=== PATIENT | female | born 1940 | race Caucasian/White ===

== ENCOUNTER 2016-05-23 13:35 | Outpatient (CLI) | payer OTHER ==
--- NOTE | 2016-05-23 15:01 | DI ---
Examination: Three radiographic images of the thoracic spine. Comparison: None available. Reason for study: Disc degeneration. FINDINGS: Imaging was obtained from the upper thoracic to the upper lumbar spine. The upper thorac ic and lower cervical spine is not well imaged secondary to summation artifact from the patient's sh oulders. No acute fracture or spondylolisthesis. The vertebral bodies and intervertebral body disc space heights are relatively well maintained. There is maintenance of the thoracic kyphosis. There is mild to moderate degenerative disease seen with some loss of intervertebral body disc space heig ht and osteophytic changes. Hardware secondary to anterior cervical discectomy and fusion. Impression: 1. No acute fracture or spondylolisthesis is seen. If clinical concern exists for osseous injury, CT scan may be performed. If clinical concern exists for radiculopathy, MRI may be performed. 2. The upper thoracic and lower cervical spine is not well evaluated.
--- NOTE | 2016-05-23 15:13 | DI ---
EXAM: Lumbar spine five views HISTORY: Disc degeneration. FINDINGS: The bones appear demineralized. There is exaggerated lordosis. Diffuse moderate degener ative disc disease. Severe facet arthropathy, especially at the lower lumbar spine and lumbosacral junction. No significant loss of vertebral body height. No definite spondylolisthesis. No acute f racture. Oblique views reveal no obvious pars interarticularis defect. There is no scoliosis. Sac roiliac joints within normal limits. Vascular calcifications consistent with old granulomatous dise ase. IMPRESSION: Degenerative disc and facet disease. Demineralization. No acute abnormality.
== END 2016-05-23 13:36 | disposition home or self-care (01) ==
LOC: RAD 13:35
PROVIDERS: ATTEND Pain Medicine Interventional Pain Medicine
DX: M51.16 Intervertebral disc disorders with radiculopathy, lumbar region (principal); M51.17 Intervertebral disc disorders with radiculopathy, lumbosacral region; M51.24 Other intervertebral disc displacement, thoracic region; M47.814 Spondylosis without myelopathy or radiculopathy, thoracic region; M47.816 Spondylosis without myelopathy or radiculopathy, lumbar region; M47.817 Spondylosis without myelopathy or radiculopathy, lumbosacral region; M51.34 Other intervertebral disc degeneration, thoracic region; M51.36 Other intervertebral disc degeneration, lumbar region; M51.37 Other intervertebral disc degeneration, lumbosacral region

== ENCOUNTER 2016-12-31 09:09 | Outpatient (CLI) ==
--- NOTE | 2016-12-31 13:44 | MRI ---
EXAM: Lumbar spine MRI without contrast. HISTORY: Lumbar disc disorder with radiation. Lumbar facet arthropathy. COMPARISON: Lumbar spine radiographs 05/23/2016 and thoracic spine radiographs 05/23/2016. TECHNIQUE: Multiplanar, multisequence MR images were acquired lumbar spine without contrast. FINDINGS: Five lumbar-type vertebra are present. There is mild accentuation of the usual lumbar lo rdosis and there is a trace retrolisthesis of L2 on L3, 2 mm retrolisthesis of L3 on L4 and 2 mm ant erolisthesis of L4 on L5. There is mild chronic anterior wedging of the T11 vertebra and minor rotary drier feeder gabbi anterior wedging of T12. The lumbar vertebra are normal in height and intrinsic bone marrow sig nal. There is osteophytosis with disc space narrowing, degenerative endplate changes, small chronic Schmorl's nodes and disc desiccation at T10-11 and T11-12 with reactive bright STIR signal edema al prabha the anterior endplates at both these levels. There is ventral spondylosis with mild reactive fa tty marrow changes along the anterior endplates at T12-L1 and disc desiccation. There is desiccatio n of the lumbar intervertebral discs and there is lumbar ventral spondylosis and mild to moderate po sterior disc space narrowing at L1-2, L2-3 and L3-4. Conus medullaris ends at L1 and has normal sig nal intensity. The partially visualized liver, spleen and kidneys are unremarkable. There are descending colonic d iverticula without diverticulitis. There are no paravertebral masses. T10-11: On the sagittal sections, there is a minor diffuse spondylotic ridge that effaces the ventr al thecal sac and minor left facet arthropathy. This causes mild spinal stenosis. AP diameter of t he thecal sac is 7.7 mm. T11-12: There is a minor dorsal spondylotic disc bulge without central canal stenosis. T12-L1: There is a minor dorsal spondylotic disc bulge without central canal stenosis. L1-2: There is a mild disc bulge with a small right paracentral disc protrusion and annular fissure and minor bilateral facet arthropathy and ligamentum flavum hypertrophy, greater on the right. The re is no central canal stenosis or foraminal stenosis. L2-3: There is a minimal posterior disc bulge, minor bilateral facet arthropathy and mild ligamentu m flavum hypertrophy. This causes triangulation of the thecal sac. L3-4: There is a minor disc bulge and mild bilateral facet arthropathy and ligamentum flavum hypert rophy. This causes minor right neural foraminal stenosis. L4-5: There is a mild disc bulge and anterolisthesis of L4 on L5 due to mild to moderate bilateral hypertrophic facet arthropathy. This causes mild bilateral neural foraminal stenosis. L5-S1: There is a small posterior disc bulge and mild to moderate left and mild right hypertrophic facet arthropathy and mild bilateral ligamentum flavum hypertrophy. This causes mild to moderate le ft neural foraminal stenosis. IMPRESSION: 1. 2 mm degenerative anterolisthesis L4 on L5 due to hypertrophic facet arthropathy. 2. Small right paracentral disc protrusion L1-2. 3. Mild lumbar degenerative spondylosis. 4. Colonic diverticulosis without diverticulitis.
== END 2016-12-31 09:10 | disposition home or self-care (01) ==
LOC: RAD 09:09
PROVIDERS: ATTEND Pain Medicine Interventional Pain Medicine
DX: M51.16 Intervertebral disc disorders with radiculopathy, lumbar region (principal); M51.17 Intervertebral disc disorders with radiculopathy, lumbosacral region; M47.816 Spondylosis without myelopathy or radiculopathy, lumbar region; M47.817 Spondylosis without myelopathy or radiculopathy, lumbosacral region; M51.36 Other intervertebral disc degeneration, lumbar region; M51.37 Other intervertebral disc degeneration, lumbosacral region

== ENCOUNTER 2017-04-01 13:39 | Outpatient (CLI) ==
--- NOTE | 2017-04-01 14:54 | DI ---
EXAM: CHEST FRONTAL AND LATERAL VIEWS HISTORY: Cough. COMPARISON: 07/25/2008 FINDINGS: Upper limit normal heart size is stable. Moderate atherosclerotic disease. Sternotomy wi res are noted. No vascular congestion or definite consolidated pneumonia. No visible pleural fluid or pneumothorax. Stabilization hardware over the cervical spine. IMPRESSION: No definite acute cardiopulmonary process. Managing the patient on a clinical basis is recommended.
--- NOTE | 2017-04-01 15:21 | DI ---
EXAM: Four views of the left ribs. History: Left rib trauma. Comparison: Chest radiograph 04/01/2017 Findings: Heart remains enlarged. Sternotomy wires. Postsurgical changes of the cervical spine. A therosclerotic vascular calcifications. Cholecystectomy clips. No acute displaced rib fractures josé antonio ntified. Impression: No acute findings
== END 2017-04-01 13:40 | disposition home or self-care (01) ==
LOC: RAD 13:39
PROVIDERS: ATTEND Family Medicine
DX: E88.89 Other specified metabolic disorders (principal); W19.XXXA Unspecified fall, initial encounter

== ENCOUNTER 2017-10-01 13:01 | Outpatient (CLI) | payer OTHER ==
--- NOTE | 2017-10-01 15:11 | MRI ---
EXAM: MRI of the left knee without contrast COMPARISON: None available. HISTORY: Left knee pain. TECHNIQUE: Multiplanar noncontrast MR images of the left knee were acquired using a 1.2 Farida magnet . The axial sequence was repeated due to patient motion artifact. FINDINGS: No recent radiographs of the left knee are available for comparison and radiographic corre lation is recommended. There is intrasubstance degeneration of the medial meniscus. Overall diminished size of the medial m eniscus with blunting of the free edge of the posterior horn/root consistent with a degenerative type tear with a radial component extending peripherally at that level. There is also irregularity of th e inferior articular surface extending peripherally at that site. Mild extrusion of the body related to some loss of hoop containment. Intrasubstance degeneration of the lateral meniscus without a chely facing tear. Intact anterior and posterior cruciate ligament fibers are identified. Inversion recovery hyperinten se signal involving the anterior cruciate ligament related mucoid degeneration versus a minimal sprai n. Low to intermediate grade sprain of the medial collateral ligament with intact fibers identified. Lateral collateral ligament complex and posterolateral corner ligaments are intact. Mild quadricep s and minimal patellar tendinosis. No abnormal subluxation of the patella. There is subcutaneous ed sally and ill-defined subcutaneous fluid anteriorly without a drainable fluid collection. Marked thinning of the cartilage of the patella most severe along the median ridge and medial facet w ith marked thinning along the opposing articular surface of the trochlear groove as well. Moderate t hinning of the cartilage along the central and medial weightbearing surface of lateral femoral condyl e with mild thinning of the cartilage of the lateral tibial plateau. Moderate thinning and irregular ity of the cartilage along weightbearing surface of the medial femoral condyle with mild to moderate thinning of the cartilage medial tibial plateau. Subchondral edema throughout the medial tibial plat eau as well as marrow edema along the tibial spines without a discrete fracture. Small to moderate s ized joint effusion. Slit-like popliteal cyst with adjacent edema related to a cyst leakage/rupture. IMPRESSION: 1. Tear of the posterior horn/root of the medial meniscus as described with mild extrusion of the trudy dy related to loss of hoop containment. 2. Tricompartmental osteoarthrosis with most severe changes in the medial and patellofemoral compart ments. Marrow edema throughout the proximal tibia without evidence of an acute fracture. 3. Small to moderate sized joint effusion, nonspecific. Slit-like popliteal cyst with evidence of cy st rupture. 4. Mucoid degeneration versus minimal sprain of the anterior cruciate ligament. Low to intermediate grade sprain of the medial collateral ligament. 5. Mild patellar/quadriceps tendinosis. Subcutaneous edema anteriorly without a drainable fluid col lection.
== END 2017-10-01 13:02 | disposition home or self-care (01) ==
LOC: RAD 13:01
PROVIDERS: ATTEND Family Medicine
DX: M25.562 Pain in left knee (principal)

== ENCOUNTER 2018-09-17 10:55 | Outpatient (CLI) ==
--- NOTE | 2018-09-17 13:09 | CT ---
EXAM: CT of the abdomen pelvis with contrast History: Abdominal pain and diarrhea. Comparison: CT abdomen 06/09/2008 Technique: Multiplanar CT images through the abdomen pelvis were obtained following administration o f IV contrast. Findings: Heart is mildly enlarged. Subsegmental atelectasis seen within the lower lungs. No acute osseous abnormalities. Degenerative changes of the spine. Exostosis of the proximal right femur. Chondrocalcinosis involving the right hip. Atherosclerotic vascular calcifications. Calcified granulomas within the spleen. Stable tiny incide ntal benign cyst within the spleen. No focal liver lesions. Stable tiny benign bilateral adrenal ad enomas. No renal masses. Septated cystic mass within the pancreatic body now measures 2.8 cm x 1.9 cm and previously measured 2.0 cm. No bowel obstruction. Bladder is low lying within the pelvis. No bladder wall thickening. Status post hysterectomy. No free air and no ascites. Colonic diverticul osis. The appendix is not seen. Mild to moderate colonic stool. No abdominal aortic aneurysm. No pathologically enlarged lymph nodes. No perirectal inflammation. Impression: 1. No acute intra-abdominal or pelvic process. 2. Increasing size of indeterminate pancreatic cystic lesion. Recommend further evaluation with MRI pancreatic mass protocol. 3. Colonic diverticulosis. 4. Atherosclerotic vascular disease. 5. Bony exostosis of the right hip. If there is any evidence of right hip pain then an MRI could be used to help further evaluate. 6. Stable tiny benign bilateral adrenal adenomas. 7. Mild cardiomegaly
== END 2018-09-17 10:56 | disposition home or self-care (01) ==
LOC: RAD 10:55 → LAB 10:56
PROVIDERS: ATTEND Family Medicine
DX: K58.9 Irritable bowel syndrome, unspecified (principal); R10.84 Generalized abdominal pain; R19.7 Diarrhea, unspecified
CPT/HCPCS: 36415; 82565

== ENCOUNTER 2018-12-24 16:14 | Outpatient (CLI) | payer OTHER | END 2018-12-24 16:33 | disposition short-term general hospital (02) | LOC: AMBL 16:14 | PROVIDERS: ATTEND Emergency Medicine | DX: S49.91XA Unspecified injury of right shoulder and upper arm, initial encounter (principal); W19.XXXA Unspecified fall, initial encounter; R07.81 Pleurodynia ==

== ENCOUNTER 2022-06-05 13:21 | Inpatient (IN) ==
[2022-06-05] MEDS ORDERED: DUONEB NEB ONE (13:40)
[2022-06-05] MEDS ORDERED: SOLU-MEDROL 125 MG IVP ONE (13:40)
--- NOTE | 2022-06-05 13:44 | ED.PDOC ---
General <OUMOU CAMERON MD - Last Filed: 06/05/22 18:46> ED Provider: Dr. OUMOU CAMERON MD Chief Complaint: Cough Stated Complaint: mild to mod off and on cough today w/ blood but none at this time and no chest pain, fever yesterday, not on home oxygen, no hx TB, +eliquis for atrial fib, cabg, htn Time Seen by Provider: 06/05/22 13:34 Mode of Arrival: Walk-In Information Source: Patient and EMT Primary Care Provider: MINERVA TAMEZ Sepsis Protocol: For patient's 13 years and over: Temp is 96.8 and below OR 101 and greater Pulse >90 BPM Resp >20/minute Acutely Altered Mental Status Are patient's symptoms suggestive of a new infection, such as: -Pneumonia -Skin, Soft Tissue -Endocarditis -UTI -Bone, Joint Infection -Implantable Device -Acute Abdominal Infection -Wound Infection -Meningitis -Blood Stream Catheter Infection -Unknown <SALINAS VENTURA MD - Last Filed: 06/05/22 23:01> Nursing and Triage Documentation Reviewed and Agree: Yes Does patient meet sepsis criteria?: No System Inflammatory Response Syndrome: Not Applicable Review of Systems <OUMOU CAMERON MD - Last Filed: 06/05/22 18:46> Review Of Systems Constitutional: Reports Fever and Malaise Eyes: Denies Vision change Ears, Nose, Mouth, Throat: Denies Epistaxis Respiratory: Reports Cough and Wheezing; Denies Short of air Cardiac: Denies Chest pain GI: Denies Abdominal pain or Vomiting : Denies Hematuria Musculoskeletal: Denies Back pain Skin: Denies Rash or Cyanosis Neurological: Denies Cognitive dysfunction All Other Systems: Other PFSH <OUMOU CAMERON MD - Last Filed: 06/05/22 18:46> Medical History Allergic rhinitis Anxiety Arrhythmia Arthritis Back pain Chronic back pain Congestive heart failure (CHF) Coronary stent patent Depression Diverticulosis Dysphagia Fatty liver GERD (gastroesophageal reflux disease) History of fall Hyperlipidemia Hypertension Irritable bowel syndrome (IBS) Obstructive sleep apnea Paroxysmal A-fib Peptic ulcer Family History Mother Hx of CABG Hypertension BROTHER Hx of CABG Hypertension FATHER Hypertension Colon cancer SISTER Breast cancer Social History (Updated 06/05/22 @ 21:48 by MANISHA SOLANO RN) Smoking and tobacco status: Former smoker Passive smoking exposure: No Quit status: quit date established Alcohol intake: never Substance use type: does not use Ashley/confucianist: Yevgeniy Special ashley needs: No Agree to transfusion: Yes Adopted: No Foster care: No Household members: family Housing: house Daycare: no daycare Number of children: 3 Highest education level completed: GED or equivalent Financial difficulty paying for basics: somewhat hard service: No custodial: No Current occupational status: retired History of recent travel: No Current gender identity: female Current diet type/program: regular Caffeine: No Working smoke detector in home: Yes Fire extinguisher in home: Yes Firearms in home: No What type of physical activity do you participate in?: bicycling and other Physical activity functional status: independent ambulation How many days of moderate to strenuous exercise, like a brisk walk, did you do in the last 7 days: 0 Surgical History History of bilateral cataract extraction History of cardiac catheterization History of cholecystectomy History of colonoscopy History of coronary artery bypass graft History of coronary artery stent placement History of elbow surgery History of endoscopy History of esophagogastroduodenoscopy (EGD) History of hysterectomy History of neck surgery Status post left hip replacement Physical Exam <OUMOU CAMERON MD - Last Filed: 06/05/22 18:46> Physical Exam Appearance: Reports Obese Ill-appearing: Mild Pain Distress: None Eyes: Reports RIGOBERTO, EOMI and Conjunctiva clear ENT: Reports Oropharynx normal Neck: Supple Respiratory: Reports Airway patent and Wheezes Cardiovascular: Reports RRR GI/: Reports Soft and Nontender Musculoskeletal: Reports ROM intact Skin: Reports Warm and Dry Neurological: Reports Alert and Oriented Psychiatric: Reports Affect appropriate Interpretation <OUMOU CAMERON MD - Last Filed: 06/05/22 18:46> Radiology Interpretation Radiology Interpretation By: Radiologist Exam Interpreted: CXR Xray Comments: right pneumonia EKG Interpretation Time of EKG #1: 15:10 Rate: Normal Rhythm: Sinus Interpretation: no stemi <SALINAS VENTURA MD - Last Filed: 06/05/22 23:01> Critical Care Note Total Critical Care Time (mins): 0 Course <OUMOU CAMERON MD - Last Filed: 06/05/22 18:46> Course Hematology/Chemistry: 06/05/22 13:51 06/05/22 13:51 Orders, Labs, Meds: Lab Review 06/05/22 06/05/22 06/05/22 13:45 13:51 13:51 WBC 14.82 H RBC 3.97 L Hgb 12.3 Hct 36.0 L MCV 90.7 MCH 31.0 MCHC 34.2 RDW Coeff of Jey 12.7 Plt Count 213 Immature Gran % (Auto) 0.3 Neut % (Auto) 83.9 H Lymph % (Auto) 8.0 L Meade % (Auto) 7.3 Eos % (Auto) 0.3 Baso % (Auto) 0.2 Neut # (Auto) 12.4 H Lymph # (Auto) 1.2 Meade # (Auto) 1.1 Eos # (Auto) 0.1 Baso # (Auto) 0.0 Immature Gran # (Auto) 0.1 PT 11.0 INR 1.06 Puncture Site Rbrach Base Excess 2.3 O2 Saturation 97.1 ABG pH 7.54 H* ABG pCO2 29.0 L ABG pO2 80.0 L ABG HCO3 24.8 ABG Total CO2 25.7 H Keshav Test + Hemoglobin 1.2 Oxyhemoglobin 95.0 Carboxyhemoglobin 2.7 H Total Hemoglobin 13.0 O2 Delivery Device Ra Sodium Potassium Chloride Carbon Dioxide Anion Gap BUN Creatinine Estimated GFR (MDRD) BUN/Creatinine Ratio Glucose Lactic Acid Calcium Total Bilirubin AST ALT Alkaline Phosphatase Troponin I Total Protein Albumin Globulin Albumin/Globulin Ratio D-Dimer SARS CoV-2 RNA Rapid SUE 06/05/22 06/05/22 06/05/22 13:51 13:51 13:51 WBC RBC Hgb Hct MCV MCH MCHC RDW Coeff of Jey Plt Count Immature Gran % (Auto) Neut % (Auto) Lymph % (Auto) Meade % (Auto) Eos % (Auto) Baso % (Auto) Neut # (Auto) Lymph # (Auto) Meade # (Auto) Eos # (Auto) Baso # (Auto) Immature Gran # (Auto) PT INR Puncture Site Base Excess O2 Saturation ABG pH ABG pCO2 ABG pO2 ABG HCO3 ABG Total CO2 Keshav Test Hemoglobin Oxyhemoglobin Carboxyhemoglobin Total Hemoglobin O2 Delivery Device Sodium 128.9 L Potassium 3.91 Chloride 97.0 L Carbon Dioxide 25.3 Anion Gap 10.51 BUN 21.8 H Creatinine 1.14 Estimated GFR (MDRD) 46.00 BUN/Creatinine Ratio 19.12 Glucose 99.1 Lactic Acid 0.80 Calcium 8.41 Total Bilirubin 0.68 AST 43.8 H ALT 16.3 Alkaline Phosphatase 77.3 Troponin I 2.940 H* Total Protein 6.63 Albumin 3.76 Globulin 2.87 Albumin/Globulin Ratio 1.31 D-Dimer 1660.45 H SARS CoV-2 RNA Rapid SUE 06/05/22 14:03 WBC RBC Hgb Hct MCV MCH MCHC RDW Coeff of Jey Plt Count Immature Gran % (Auto) Neut % (Auto) Lymph % (Auto) Meade % (Auto) Eos % (Auto) Baso % (Auto) Neut # (Auto) Lymph # (Auto) Meade # (Auto) Eos # (Auto) Baso # (Auto) Immature Gran # (Auto) PT INR Puncture Site Base Excess O2 Saturation ABG pH ABG pCO2 ABG pO2 ABG HCO3 ABG Total CO2 Keshav Test Hemoglobin Oxyhemoglobin Carboxyhemoglobin Total Hemoglobin O2 Delivery Device Sodium Potassium Chloride Carbon Dioxide Anion Gap BUN Creatinine Estimated GFR (MDRD) BUN/Creatinine Ratio Glucose Lactic Acid Calcium Total Bilirubin AST ALT Alkaline Phosphatase Troponin I Total Protein Albumin Globulin Albumin/Globulin Ratio D-Dimer SARS CoV-2 RNA Rapid SUE Negative Orders Category Date Time Status ADMIT PATIENT INPATIENT .TO [facility] (MONITORED BED) ADMISSION 06/05/22 19:30 Active ABG DRAW REQUEST Stat CARDIO 06/05/22 13:40 Completed EKG-(ED ONLY) Stat CARDIO 06/05/22 13:40 Completed INTAKE & OUTPUT Q8HR CARE 06/05/22 19:30 Active IP: INSERT SALINE LOCK ONCE CARE 06/05/22 19:30 Active TELEMETRY MONITORING TELE CARE 06/05/22 19:30 Active VITAL SIGNS Q8HR CARE 06/05/22 19:30 Active OXYGEN [ED APPLY O2] .ONCE EMERGENCY 06/05/22 13:40 Active ABG COOX Stat LAB 06/05/22 13:45 Completed BLOOD CULTURE Stat LAB 06/05/22 12:23 Received CBC W/ AUTO DIFF Stat LAB 06/05/22 13:51 Completed CMP [COMPREHENSIVE METABOLIC PANEL] Stat LAB 06/05/22 13:51 Completed D-DIMER Stat LAB 06/05/22 13:51 Completed LACTIC ACID Stat LAB 06/05/22 13:51 Completed PT WITH INR Stat LAB 06/05/22 13:51 Completed SARS COV-2 RNA RAPID SUE Stat LAB 06/05/22 14:03 Completed TROPONIN I Stat LAB 06/05/22 13:51 Completed Aspirin [Aspirin Chewable] MEDS 06/05/22 14:45 Discontinued 324 mg PO ONCE ONE Doxycycline Hyclate Inj [Doxy-100] 100 mg MEDS 06/05/22 14:04 Discontinued 0.9 % Sodium Chloride [Sodium Chloride 100Ml] 100 ml IV ONCE Ipratropium/Albuterol Neb [Duoneb] MEDS 06/05/22 13:40 Discontinued 3 ml NEB ONCE ONE Methylprednisolone Sod Succ/Pf [Solu-Medrol 125 mg] MEDS 06/05/22 13:40 Discontinued 125 mg IVP ONCE ONE RESUSCITATION STATUS Routine OTHERS 06/05/22 19:30 Ordered CHEST, 1V AP ONLY Stat RADS 06/05/22 13:40 Completed Medications Discontinued Medications Generic Name Dose Route Start Last Admin Trade Name Freq PRN Reason Stop Dose Admin Albuterol/Ipratropium 3 ml 06/05/22 13:40 06/05/22 13:54 Ipratropium/Albuterol Vial.Neb NEB 06/05/22 13:41 3 ml ONCE ONE Administration Aspirin 324 mg 06/05/22 14:45 06/05/22 14:52 Aspirin 81 Mg Tab.Chew PO 06/05/22 14:46 324 mg ONCE ONE Administration Doxycycline Hyclate 100 mg/ 100 mls @ 50 mls/hr 06/05/22 14:04 06/05/22 14:27 Sodium Chloride IV 06/05/22 16:03 50 mls/hr ONCE ONE Administration Methylprednisolone Sodium Succinate 125 mg 06/05/22 13:40 06/05/22 14:27 Methylprednisolone Sod Succ/Pf 125 Mg/2 Ml Vial IVP 06/05/22 13:41 125 mg ONCE ONE Administration Vital Signs: Temp Pulse Resp BP Pulse Ox 06/05/22 13:22 98.2 F 72 20 127/64 92 L <SALINAS VENTURA MD - Last Filed: 06/05/22 23:01> Course Orders, Labs, Meds: Lab Review 06/05/22 06/05/22 06/05/22 13:45 13:51 13:51 WBC 14.82 H RBC 3.97 L Hgb 12.3 Hct 36.0 L MCV 90.7 MCH 31.0 MCHC 34.2 RDW Coeff of Jey 12.7 Plt Count 213 Immature Gran % (Auto) 0.3 Neut % (Auto) 83.9 H Lymph % (Auto) 8.0 L Meade % (Auto) 7.3 Eos % (Auto) 0.3 Baso % (Auto) 0.2 Neut # (Auto) 12.4 H Lymph # (Auto) 1.2 Meade # (Auto) 1.1 Eos # (Auto) 0.1 Baso # (Auto) 0.0 Immature Gran # (Auto) 0.1 PT 11.0 INR 1.06 Puncture Site Rbrach Base Excess 2.3 O2 Saturation 97.1 ABG pH 7.54 H* ABG pCO2 29.0 L ABG pO2 80.0 L ABG HCO3 24.8 ABG Total CO2 25.7 H Keshav Test + Hemoglobin 1.2 Oxyhemoglobin 95.0 Carboxyhemoglobin 2.7 H Total Hemoglobin 13.0 O2 Delivery Device Ra Sodium Potassium Chloride Carbon Dioxide Anion Gap BUN Creatinine Estimated GFR (MDRD) BUN/Creatinine Ratio Glucose Lactic Acid Calcium Total Bilirubin AST ALT Alkaline Phosphatase Troponin I Total Protein Albumin Globulin Albumin/Globulin Ratio D-Dimer SARS CoV-2 RNA Rapid SUE 06/05/22 06/05/22 06/05/22 13:51 13:51 13:51 WBC RBC Hgb Hct MCV MCH MCHC RDW Coeff of Jey Plt Count Immature Gran % (Auto) Neut % (Auto) Lymph % (Auto) Meade % (Auto) Eos % (Auto) Baso % (Auto) Neut # (Auto) Lymph # (Auto) Meade # (Auto) Eos # (Auto) Baso # (Auto) Immature Gran # (Auto) PT INR Puncture Site Base Excess O2 Saturation ABG pH ABG pCO2 ABG pO2 ABG HCO3 ABG Total CO2 Keshav Test Hemoglobin Oxyhemoglobin Carboxyhemoglobin Total Hemoglobin O2 Delivery Device Sodium 128.9 L Potassium 3.91 Chloride 97.0 L Carbon Dioxide 25.3 Anion Gap 10.51 BUN 21.8 H Creatinine 1.14 Estimated GFR (MDRD) 46.00 BUN/Creatinine Ratio 19.12 Glucose 99.1 Lactic Acid 0.80 Calcium 8.41 Total Bilirubin 0.68 AST 43.8 H ALT 16.3 Alkaline Phosphatase 77.3 Troponin I 2.940 H* Total Protein 6.63 Albumin 3.76 Globulin 2.87 Albumin/Globulin Ratio 1.31 D-Dimer 1660.45 H SARS CoV-2 RNA Rapid SUE 06/05/22 14:03 WBC RBC Hgb Hct MCV MCH MCHC RDW Coeff of Jey Plt Count Immature Gran % (Auto) Neut % (Auto) Lymph % (Auto) Meade % (Auto) Eos % (Auto) Baso % (Auto) Neut # (Auto) Lymph # (Auto) Meade # (Auto) Eos # (Auto) Baso # (Auto) Immature Gran # (Auto) PT INR Puncture Site Base Excess O2 Saturation ABG pH ABG pCO2 ABG pO2 ABG HCO3 ABG Total CO2 Keshav Test Hemoglobin Oxyhemoglobin Carboxyhemoglobin Total Hemoglobin O2 Delivery Device Sodium Potassium Chloride Carbon Dioxide Anion Gap BUN Creatinine Estimated GFR (MDRD) BUN/Creatinine Ratio Glucose Lactic Acid Calcium Total Bilirubin AST ALT Alkaline Phosphatase Troponin I Total Protein Albumin Globulin Albumin/Globulin Ratio D-Dimer SARS CoV-2 RNA Rapid SUE Negative Orders Category Date Time Status ADMIT PATIENT INPATIENT .TO [facility] (MONITORED BED) ADMISSION 06/05/22 19:30 Active ABG DRAW REQUEST Stat CARDIO 06/05/22 13:40 Completed EKG-(ED ONLY) Stat CARDIO 06/05/22 13:40 Completed INTAKE & OUTPUT Q8HR CARE 06/05/22 19:30 Active IP: INSERT SALINE LOCK ONCE CARE 06/05/22 19:30 Active TELEMETRY MONITORING TELE CARE 06/05/22 19:30 Active VITAL SIGNS Q8HR CARE 06/05/22 19:30 Active OXYGEN [ED APPLY O2] .ONCE EMERGENCY 06/05/22 13:40 Active ABG COOX Stat LAB 06/05/22 13:45 Completed BLOOD CULTURE Stat LAB 06/05/22 12:23 Received CBC W/ AUTO DIFF Stat LAB 06/05/22 13:51 Completed CMP [COMPREHENSIVE METABOLIC PANEL] Stat LAB 06/05/22 13:51 Completed D-DIMER Stat LAB 06/05/22 13:51 Completed LACTIC ACID Stat LAB 06/05/22 13:51 Completed PT WITH INR Stat LAB 06/05/22 13:51 Completed SARS COV-2 RNA RAPID SUE Stat LAB 06/05/22 14:03 Completed TROPONIN I Stat LAB 06/05/22 13:51 Completed Aspirin [Aspirin Chewable] MEDS 06/05/22 14:45 Discontinued 324 mg PO ONCE ONE Doxycycline Hyclate Inj [Doxy-100] 100 mg MEDS 06/05/22 14:04 Discontinued 0.9 % Sodium Chloride [Sodium Chloride 100Ml] 100 ml IV ONCE Ipratropium/Albuterol Neb [Duoneb] MEDS 06/05/22 13:40 Discontinued 3 ml NEB ONCE ONE Methylprednisolone Sod Succ/Pf [Solu-Medrol 125 mg] MEDS 06/05/22 13:40 Discontinued 125 mg IVP ONCE ONE RESUSCITATION STATUS Routine OTHERS 06/05/22 19:30 Ordered CHEST, 1V AP ONLY Stat RADS 06/05/22 13:40 Completed Medications Discontinued Medications Generic Name Dose Route Start Last Admin Trade Name Freq PRN Reason Stop Dose Admin Albuterol/Ipratropium 3 ml 06/05/22 13:40 06/05/22 13:54 Ipratropium/Albuterol Vial.Neb NEB 06/05/22 13:41 3 ml ONCE ONE Administration Aspirin 324 mg 06/05/22 14:45 06/05/22 14:52 Aspirin 81 Mg Tab.Chew PO 06/05/22 14:46 324 mg ONCE ONE Administration Doxycycline Hyclate 100 mg/ 100 mls @ 50 mls/hr 06/05/22 14:04 06/05/22 14:27 Sodium Chloride IV 06/05/22 16:03 50 mls/hr ONCE ONE Administration Methylprednisolone Sodium Succinate 125 mg 06/05/22 13:40 06/05/22 14:27 Methylprednisolone Sod Succ/Pf 125 Mg/2 Ml Vial IVP 06/05/22 13:41 125 mg ONCE ONE Administration Vital Signs: Temp Pulse Resp BP Pulse Ox 06/05/22 13:22 98.2 F 72 20 127/64 92 L Discharge Plan Discharge Patient Disposition: ADMITTED INPATIENT Discharge Problem: Pneumonia ED Provider: OUMOU CAMERON Condition: Fair <OUMOU CAMERON MD - Last Filed: 06/05/22 18:46> Physician Progress Note: d/w Dr Tamez who elects to wait until 7pm to see if pt will be accepted for transfer to [facility], afterasya he will admit here if there are no beds available at [facility] care to Dr Ventura at 19:00 []
[2022-06-05 13:53] LABS: BEecf 2.3 (-2.0-3.0); COHb 2.7 (0.5-1.5); HCO3 24.8 (21-28); MetHb 1.2 (0-1.5); TCO2 25.7 (19-24); sO2 97.1 % (94-98)
[2022-06-05 13:57] LABS: BASOPHILS % (AUTO) 0.2 % (0.0-3.0); EOSINOPHILS # (AUTO) 0.1 K/ul (0.0-0.7); EOSINOPHILS % (AUTO) 0.3 % (0.0-7.0); HEMOGLOBIN 12.3 g/dl (12.0-16.0); IMMATURE GRANULOCYTE # (AUTO) 0.1 (0.0-1.0); IMMATURE GRANULOCYTE % (AUTO) 0.3 % (0.0-5.0); LYMPHOCYTES # (AUTO) 1.2 K/uL (0.60-3.4); MEAN CORPUSCULAR HGB CONC 34.2 (31.8-35.4); MEAN CORPUSCULAR VOLUME 90.7 fl (81.0-99.0); MONOCYTES # (AUTO) 1.1 K/uL (0.4-2.0); MONOCYTES % (AUTO) 7.3 (0-10); NEUTROPHILS # (AUTO) 12.4 K/ul (2.0-6.9); NEUTROPHILS % (AUTO) 83.9 % (42.2-75.2); PLATELET COUNT 213 10^3/uL (140-440); RDW COEFFICIENT OF VARIATION 12.7 % (11.6-14.8); RED BLOOD COUNT 3.97 10^6/ul (4.20-5.40); WHITE BLOOD COUNT 14.82 K/ul (4.6-10.2)
--- NOTE | 2022-06-05 13:58 | DI ---
EXAM: CHEST RADIOGRAPH TECHNIQUE: Single frontal chest radiograph. HISTORY: Coughing COMPARISON: 04/01/2017 FINDINGS: There is patchy pneumonia in the right base. Left lung is clear. The heart size is normal. There is no pleural effusion. Previous midline sternotomy IMPRESSION: 1. Right lower lobe pneumonia
[2022-06-05] MEDS ORDERED: DOXY-100 100 MG in SODIUM CHLORIDE 100ML 100 ML IV ONE (14:04)
[2022-06-05 14:05] LABS: ABG PH 7.54 (7.35-7.45)
[2022-06-05 14:11] LABS: ALANINE AMINOTRANSFERASE 16.3 U/L (0-35); ALBUMIN 3.76 g/dL (3.5-5.0); ALKALINE PHOSPHATASE 77.3 U/L (53-141); ASPARTATE AMINO TRANSFERASE 43.8 U/L (14-36); BILIRUBIN,TOTAL 0.68 mg/dL (0.2-1.3); BLOOD UREA NITROGEN 21.8 mg/dL (7-17); CALCIUM 8.41 mg/dL (8.4-10.2); CARBON DIOXIDE 25.3 mmol/L (22-30.0); CREATININE 1.14 mg/dL (0.60-1.30); GLUCOSE 99.1 mg/dL (74-106); POTASSIUM 3.91 mmol/L (3.5-5.1); SODIUM 128.9 mmol/L (134.5-145); TOTAL PROTEIN 6.63 g/dL (6.3-8.2)
[2022-06-05 14:43] LABS: TROPONIN I 2.94 ng/ml (0.0000-0.120)
[2022-06-05] MEDS ORDERED: ASPIRIN CHEWABLE PO ONE (14:45)
[2022-06-05 14:51] LABS: SARS COV-2 RNA RAPID NAAT NEGATIVE (NEGATIVE)
[2022-06-05 22:14] VITALS: BMI 27.5
[2022-06-05] MEDS ORDERED: COMPAZINE PO PRN (23:16)
[2022-06-05] MEDS ORDERED: IMODIUM PO PRN (23:16)
[2022-06-05] MEDS ORDERED: NITROSTAT SL PRN (23:16)
[2022-06-05] MEDS ORDERED: COLESTID PO SCH (23:26)
[2022-06-05] MEDS ORDERED: ROCEPHIN 1 GM/50 ML D5W 1 GM/50 ML BAG IV SCH (23:36)
[2022-06-05] MEDS ORDERED: ZOFRAN ODT PO PRN (23:56)
[2022-06-06] MEDS: BETAPACE PO SCH ×3 (00:02→20:46)
[2022-06-06] MEDS: XANAX PO PRN ×2 (00:03→17:16)
[2022-06-06] MEDS: BENADRYL PO PRN ×2 (00:03→20:47)
[2022-06-06] MEDS: NORCO 10-325 PO PRN ×4 (00:03→23:17)
[2022-06-06] MEDS: IMDUR PO SCH ×3 (00:03→20:46)
[2022-06-06] MEDS: SODIUM CHLORIDE 1,000 ML IV SCH ×4 (00:04→20:52)
[2022-06-06] MEDS: LOVENOX SUBCUT SCH ×3 (00:04→20:47)
[2022-06-06 06:04] LABS: BASOPHILS % (AUTO) 0.1 % (0.0-3.0); EOSINOPHILS % (AUTO) 0.1 % (0.0-7.0); HEMATOCRIT 33.6 % (37.0-47.0); HEMOGLOBIN 11.5 g/dl (12.0-16.0); IMMATURE GRANULOCYTE % (AUTO) 0.3 % (0.0-5.0); LYMPHOCYTES % (AUTO) 7.8 (10.0-50.0); MEAN CORPUSCULAR HEMOGLOBIN 31.1 pg (27.0-31.0); MEAN CORPUSCULAR HGB CONC 34.2 (31.8-35.4); MEAN CORPUSCULAR VOLUME 90.8 fl (81.0-99.0); MONOCYTES # (AUTO) 0.5 K/uL (0.4-2.0); MONOCYTES % (AUTO) 3.8 (0-10); NEUTROPHILS # (AUTO) 11.6 K/ul (2.0-6.9); NEUTROPHILS % (AUTO) 87.9 % (42.2-75.2); PLATELET COUNT 225 10^3/uL (140-440); RDW COEFFICIENT OF VARIATION 12.6 % (11.6-14.8); WHITE BLOOD COUNT 13.14 K/ul (4.6-10.2)
[2022-06-06 06:14] LABS: ALANINE AMINOTRANSFERASE 14.6 U/L (0-35); ALBUMIN 3.56 g/dL (3.5-5.0); ASPARTATE AMINO TRANSFERASE 32.3 U/L (14-36); BILIRUBIN,TOTAL 0.46 mg/dL (0.2-1.3); CALCIUM 8.39 mg/dL (8.4-10.2); CARBON DIOXIDE 22.9 mmol/L (22-30.0); CREATININE 0.82 mg/dL (0.60-1.30); GLUCOSE 130.6 mg/dL (74-106); POTASSIUM 3.9 mmol/L (3.5-5.1); SODIUM 129.7 mmol/L (134.5-145); TOTAL PROTEIN 6.41 g/dL (6.3-8.2)
[2022-06-06] MEDS ORDERED: NITROSTAT SL PRN (07:30)
[2022-06-06] MEDS ORDERED: ZITHROMAX PO ONE ×2 (09:00→12:30)
[2022-06-06] MEDS ORDERED: COLESTID PO SCH (09:00)
[2022-06-06] MEDS ORDERED: IMDUR PO SCH (09:00)
[2022-06-06] MEDS: MULTIVITAMIN TABLET PO SCH (11:02)
[2022-06-06] MEDS: NORVASC PO SCH (11:03)
[2022-06-06] MEDS: MICRO-K CAP PO SCH (11:05)
[2022-06-06] MEDS: VITAMIN D PO SCH (11:05)
[2022-06-06] MEDS: COZAAR PO SCH (11:06)
[2022-06-06] MEDS: PRILOSEC PO SCH (11:06)
[2022-06-06] MEDS: COLESTID PO SCH ×3 (11:15→21:18)
--- NOTE | 2022-06-06 14:01 | US ---
EXAM: Bilateral lower extremity deep venous ultrasound with doppler imaging HISTORY: Elevated D-dimer difficulty breathing. TECHNIQUE: Baker-scale ultrasound with compression maneuvers and color and spectral Doppler ultrasound at rest and with augmentation of the veins was performed. Images were obtained and stored in a perm anent archive. COMPARISON: None FINDINGS: RIGHT LOWER EXTREMITY: Common Femoral Vein: Normal compression. Normal flow on color Doppler images. Normal response to augm entation. Deep Femoral Vein: Normal compression. Normal flow on color Doppler images. Normal response to augmen tation. Femoral Vein: Normal compression. Normal flow on color Doppler images. Normal response to augmentatio n. Popliteal Vein: Normal compression. Normal flow on color Doppler images. Normal response to augmentat ion. Peroneal Vein: Normal compression. Normal flow on color Doppler images. Posterior Tibial Vein: Normal compression. Normal flow on color Doppler images. Anterior Tibial Vein: Normal compression. Normal flow on color Doppler images. Greater Saphenous Vein (Superficial): Normal compression. Normal flow on color Doppler images. Other: No reflux. LEFT LOWER EXTREMITY: Common Femoral Vein: Normal compression. Normal flow on color Doppler images. Normal response to augm entation. Deep Femoral Vein: Normal compression. Normal flow on color Doppler images. Normal response to augmen tation. Femoral Vein: Normal compression. Normal flow on color Doppler images. Normal response to augmentatio n. Popliteal Vein: Normal compression. Normal flow on color Doppler images. Normal response to augmentat ion. Peroneal Vein: Normal compression. Normal flow on color Doppler images. Posterior Tibial Vein: Normal compression. Normal flow on color Doppler images. Anterior Tibial Vein: Normal compression. Normal flow on color Doppler images. Greater Saphenous Vein (Superficial): Normal compression. Normal flow on color Doppler images. Other: No reflux. IMPRESSION: No deep venous thrombosis (DVT) in the bilateral lower extremities. No superficial venous thrombosis (SVT) in the bilateral lower extremities at the levels examined.
--- NOTE | 2022-06-06 15:15 | RS.PTINEVL ---
Subjective - Patient information Date of Evaluation: 06/06/22 Date of Arrival on Unit: 06/05/22 Admitted From:: Home Diagnosis: pneumonia Usual Living Arrangement: With Others Living Arrangement Comments: lives in her home, daugther and son in law live with her. Home Environment: House, Stairs (few), Rail Medical History: Hypertension, CHF, Arthritis Medical History Comments:: depression, GERD, Afib, IBS, h/o falls, dysphagia, Surgical History: Hip Replacement, Cervical Spine, Cholecystectomy, Hysterectomy, CABG Surgical History Comments:: elbow sx, cardiac stent Medications: see chart Subjective Information/ Patient Comments:: pt states she is waiting to get cleaned up until her daughter gets here. pt is very talkative and gets SOA while talking. Reinforced PLB. pt states "I am just so weak." - Level of function Prior to this admission, the patient could do the following:: Independent Selfcare, Independent Ambulation, Drive Current Level of Function: Partially Dependent Current Equipment Used at Home: rolling Walker(states it is too big for her and she needs a smaller one.) Interventions - Objective Patient Orientation: Person, Place, Time, Situation Current Interventions: IV's, Oxygen (2 liters ), Telemetry Observation: pt very talkative, requires cues for PLB while ambulating to improve SOA. Range of Motion - ROM Right Upper Extremity AROM: WFL's Left Upper Extremity AROM: WFL's Right Lower Extremity AROM: WFL's Left Lower Extremity AROM: WFL's Muscle Strength - Muscle Strength Right Upper Extremity Strength: Mild Weakness (grossly 4/5) Left Upper Extremity Strength: Mild Weakness (grossly 4/5) Right Lower Extremity Strength: Mild Weakness (hip flex 4-/5, knee flex/ext 4/5, ankle DF/PF 4/5) Left Lower Extremity Strength: Mild Weakness (hip flex 4-/5, knee flex/ext 4/5, ankle DF/PF 4/5) Sensation - Sensation Right Upper Extremity Sensation: Intact/Normal Left Upper Extremity Sensation: Intact/Normal Right Lower Extremity Sensation: Intact/Normal Left Lower Extremity Sensation: Intact/Normal Palpation Palpation Findings: None/Normal Balance - Sitting Balance and Reactions Static Sitting Balance: Good Dynamic Sitting Balance: Fair - Standing Balance and Reactions Static Standing Balance: Poor Dynamic Standing Balance: Poor Standing Equilibrium Reactions: Delayed Left, Delayed Right Standing Protective Reactions: Delayed Left, Delayed Right Functional Mobility - Bed Mobility Rolling R/L: CGA Supine to Sit: CGA Sit to Supine: CGA - Transfers Sit to Stand: CGA Stand to Sit: CGA - Safety Awareness Safety Awareness: Fair (pt is impulsive at times and very talkative, requires repeated cues.) ANNAMARIA INDEX SCORE: n/a Ambulation - Ambulation Assistive Device Used: Rolling Walker Orthotic/Prosthetic Device: No Distance: 125ft Assistance needed with Ambulation: CGA Quality of Ambulation: with O2 and IV Gait Deviations: Narrow Based gait, Forward posture, Short stride Ambulation Comments: pt requires cues for PLB during ambulation. Factors Affecting Ambulation: Decreased Balance, Breathing/O2 Saturation, Weakness, Decreased Safety, Limited Endurance Treatment time - Units charged Gait trainin - Time with patient Length of Evaluation: 18 Total treatment time: 32 Patient Education - Education Patient Education: Activity Modification, Education of Plan of Care Teaching Recipient: Patient Teaching Methods: Discussion Comments: discussion regarding POC as well as demonstration with return demo for PLB. Assessment - Assessment Problem List:: Decreased level of function, Requires training/education, Decreased safety/Risk of falls, Weakness Rehab Potential: Good Further Therapy Indicated?: Yes Candidate for Swing Bed for Therapy Services?: Feel pt may not be a candidate for swing bed due to higher functional level. Evaluation Complexity: HISTORY: Medium, EXAM OF BODY SYSTEMS: Medium, CLINICAL PRESENTATION: Medium, CLINICAL DECISION MAKING: Medium Patient's Goal(s): Get stronger Short Term Goals GOAL #1: pt independent with rolling and scooting in bed without bedrails Goal to be met by: 06/09/22 GOAL #2: Transfer sup to/from sit independently. Goal to be met by: 06/09/22 GOAL #3: Transfer sit to/from stand SBA Goal to be met by: 06/09/22 GOAL #4: pt amb with rwx 140ft with CGA to SBA with no LOB Goal to be met by: 06/09/22 GOAL #5: Improve BLE strength 4+/5 Goal to be met by: 06/09/22 Detention Goals GOAL #1: pt independent sup to/from sit to/from stand Goal to be met by: 06/11/22 GOAL #2: pt amb functional household distances with rwx SBA to independent. Goal to be met by: 06/11/22 GOAL #3: Ascend/descend 3 steps with HR CGA Goal to be met by: 06/11/22 Plan Plan of Care: Therapeutic EX, Therapeutic Activity Other:: gait training Frequency of Treatment: 1-2 X day, as tolerated Duration of Treatment: 5 days Anticipated Discharge Destination: Home Treatment Diagnosis (ICD 10 Codes): impaired balance R 26.81. gait difficulty R 26.2. weakness M62.81 Has the Physician been added for Co-signature?: Yes
[2022-06-06] MEDS: ROCEPHIN 1 GM/50 ML D5W 1 GM/50 ML BAG IV SCH (20:48)
[2022-06-07 05:50] LABS: BASOPHILS % (AUTO) 0.2 % (0.0-3.0); EOSINOPHILS # (AUTO) 0.1 K/ul (0.0-0.7); EOSINOPHILS % (AUTO) 0.5 % (0.0-7.0); HEMATOCRIT 35.1 % (37.0-47.0); HEMOGLOBIN 11.9 g/dl (12.0-16.0); IMMATURE GRANULOCYTE % (AUTO) 0.3 % (0.0-5.0); LYMPHOCYTES # (AUTO) 1.6 K/uL (0.60-3.4); LYMPHOCYTES % (AUTO) 12.1 (10.0-50.0); MEAN CORPUSCULAR HEMOGLOBIN 31.1 pg (27.0-31.0); MEAN CORPUSCULAR HGB CONC 33.9 (31.8-35.4); MEAN CORPUSCULAR VOLUME 91.6 fl (81.0-99.0); MONOCYTES # (AUTO) 0.9 K/uL (0.4-2.0); MONOCYTES % (AUTO) 6.9 (0-10); NEUTROPHILS # (AUTO) 10.6 K/ul (2.0-6.9); PLATELET COUNT 281 10^3/uL (140-440); RDW COEFFICIENT OF VARIATION 12.6 % (11.6-14.8); RED BLOOD COUNT 3.83 10^6/ul (4.20-5.40); WHITE BLOOD COUNT 13.24 K/ul (4.6-10.2)
[2022-06-07] MEDS: XANAX PO PRN ×2 (05:53→20:45)
[2022-06-07] MEDS: PRILOSEC PO SCH (05:53)
[2022-06-07 06:10] LABS: ALANINE AMINOTRANSFERASE 15.8 U/L (0-35); ALBUMIN 3.98 g/dL (3.5-5.0); ALKALINE PHOSPHATASE 90.4 U/L (53-141); ASPARTATE AMINO TRANSFERASE 59.1 U/L (14-36); BILIRUBIN,TOTAL 0.55 mg/dL (0.2-1.3); BLOOD UREA NITROGEN 13.6 mg/dL (7-17); CALCIUM 9.09 mg/dL (8.4-10.2); CARBON DIOXIDE 23.7 mmol/L (22-30.0); CHLORIDE 99.6 mmol/L (98-107); CREATININE 0.73 mg/dL (0.60-1.30); GLUCOSE 85.3 mg/dL (74-106); POTASSIUM 3.78 mmol/L (3.5-5.1); SODIUM 131.8 mmol/L (134.5-145); TOTAL PROTEIN 7.07 g/dL (6.3-8.2)
[2022-06-07] MEDS: COZAAR PO SCH (09:37)
[2022-06-07] MEDS: NORVASC PO SCH (09:38)
[2022-06-07] MEDS: VITAMIN D PO SCH (09:39)
[2022-06-07] MEDS: MULTIVITAMIN TABLET PO SCH (09:39)
[2022-06-07] MEDS: MICRO-K CAP PO SCH (09:40)
[2022-06-07] MEDS: IMDUR PO SCH ×2 (09:40→20:45)
[2022-06-07] MEDS: BETAPACE PO SCH ×2 (09:42→20:45)
[2022-06-07] MEDS: ZITHROMAX PO SCH (09:42)
[2022-06-07] MEDS: LOVENOX SUBCUT SCH (09:42)
[2022-06-07] MEDS: COLESTID PO SCH ×3 (09:43→21:08)
--- NOTE | 2022-06-07 11:59 | NM ---
EXAM: Perfusion lung scan HISTORY: Shortness of breath at 2 weeks. COMPARISON: None of this type. Chest x-ray 06/05/2022. PROCEDURE: Ventilation: The patient was allowed to inhale from a reservoir of 30.0 mCi of 99 technetium DTPA ae rosol. Subsequently anterior, posterior, lateral and anterior and posterior oblique images were obta ined. Perfusion: The patient was injected with 5.0 mCi of 99 technetium MAA intravenously after which ante rior, posterior, lateral and anterior and posterior oblique images were obtained. FINDINGS: The ventilation images demonstrate a somewhat patchy nonuniform distribution of activity. The perfusion images demonstrate a more uniform distribution of activity without evidence of signific ant mismatched perfusion defects typically associated with pulmonary embolus. IMPRESSION: Low probability of pulmonary embolus.
[2022-06-07] MEDS ORDERED: ROBITUSSIN DM SYRUP PO SCH (17:00)
[2022-06-07] MEDS ORDERED: SODIUM CHLORIDE NEB SCH (17:00)
[2022-06-07] MEDS: SODIUM CHLORIDE NEB SCH (19:55)
[2022-06-07] MEDS: ROBITUSSIN DM SYRUP PO SCH (20:44)
[2022-06-07] MEDS: NORCO 10-325 PO PRN (20:46)
[2022-06-07] MEDS: ROCEPHIN 1 GM/50 ML D5W 1 GM/50 ML BAG IV SCH (20:57)
[2022-06-08] MEDS: SODIUM CHLORIDE NEB SCH ×2 (05:13→10:24)
[2022-06-08 05:30] LABS: BASOPHILS % (AUTO) 0.5 % (0.0-3.0); EOSINOPHILS # (AUTO) 0.2 K/ul (0.0-0.7); HEMATOCRIT 33.5 % (37.0-47.0); HEMOGLOBIN 11.3 g/dl (12.0-16.0); IMMATURE GRANULOCYTE % (AUTO) 0.5 % (0.0-5.0); LYMPHOCYTES # (AUTO) 1.2 K/uL (0.60-3.4); LYMPHOCYTES % (AUTO) 21.1 (10.0-50.0); MEAN CORPUSCULAR HEMOGLOBIN 30.9 pg (27.0-31.0); MEAN CORPUSCULAR HGB CONC 33.7 (31.8-35.4); MEAN CORPUSCULAR VOLUME 91.5 fl (81.0-99.0); MONOCYTES # (AUTO) 0.7 K/uL (0.4-2.0); MONOCYTES % (AUTO) 13.1 (0-10); NEUTROPHILS # (AUTO) 3.4 K/ul (2.0-6.9); NEUTROPHILS % (AUTO) 61.8 % (42.2-75.2); PLATELET COUNT 263 10^3/uL (140-440); RDW COEFFICIENT OF VARIATION 12.7 % (11.6-14.8); RED BLOOD COUNT 3.66 10^6/ul (4.20-5.40); WHITE BLOOD COUNT 5.58 K/ul (4.6-10.2)
[2022-06-08] MEDS: PRILOSEC PO SCH (05:43)
[2022-06-08 05:57] LABS: ALBUMIN 3.39 g/dL (3.5-5.0); ALKALINE PHOSPHATASE 69.8 U/L (53-141); ASPARTATE AMINO TRANSFERASE 25.5 U/L (14-36); BILIRUBIN,TOTAL 0.48 mg/dL (0.2-1.3); BLOOD UREA NITROGEN 5.3 mg/dL (7-17); CALCIUM 8.65 mg/dL (8.4-10.2); CHLORIDE 104.1 mmol/L (98-107); CREATININE 0.6 mg/dL (0.60-1.30); GLUCOSE 87.9 mg/dL (74-106); POTASSIUM 3.45 mmol/L (3.5-5.1); SODIUM 135.9 mmol/L (134.5-145); TOTAL PROTEIN 6.29 g/dL (6.3-8.2)
[2022-06-08] MEDS: IMDUR PO SCH ×2 (09:11→20:52)
[2022-06-08] MEDS: COLESTID PO SCH ×3 (09:11→21:15)
[2022-06-08] MEDS: BETAPACE PO SCH ×2 (09:11→20:51)
[2022-06-08] MEDS: ZITHROMAX PO SCH (09:12)
[2022-06-08] MEDS: VITAMIN D PO SCH (09:12)
[2022-06-08] MEDS: MULTIVITAMIN TABLET PO SCH (09:12)
[2022-06-08] MEDS: ROBITUSSIN DM SYRUP PO SCH ×4 (09:12→20:51)
[2022-06-08] MEDS: NORVASC PO SCH (09:12)
[2022-06-08] MEDS: MICRO-K CAP PO SCH ×2 (09:12→16:42)
[2022-06-08] MEDS: COZAAR PO SCH (09:12)
[2022-06-08] MEDS: LOVENOX SUBCUT SCH (09:13)
--- NOTE | 2022-06-08 10:56 | DI ---
EXAM: CHEST TWO VIEWS HISTORY: Pneumonia, shortness of air COMPARISON: 06/05/2022 TECHNIQUE: Two views of the chest were performed FINDINGS: Bibasilar consolidation is improved on the right. Possible trace bilateral pleural effusi ons. Heart and mediastinal contour unchanged. Atherosclerosis. Median sternotomy wires. No visibl e pneumothorax. Cervical spinal fusion hardware. IMPRESSION: Bibasilar consolidation, improved on the right, likely representing pneumonia.
[2022-06-08] MEDS: NYSTATIN ORAL SUSP PO SCH ×3 (11:29→20:51)
[2022-06-08] MEDS: XANAX PO PRN (15:14)
[2022-06-08] MEDS: NORCO 10-325 PO PRN (15:14)
[2022-06-08] MEDS: ROCEPHIN 1 GM/50 ML D5W 1 GM/50 ML BAG IV SCH (20:51)
[2022-06-09 05:38] LABS: BASOPHILS % (AUTO) 0.4 % (0.0-3.0); EOSINOPHILS # (AUTO) 0.2 K/ul (0.0-0.7); HEMATOCRIT 36.4 % (37.0-47.0); HEMOGLOBIN 12.3 g/dl (12.0-16.0); IMMATURE GRANULOCYTE # (AUTO) 0.1 (0.0-1.0); IMMATURE GRANULOCYTE % (AUTO) 1.2 % (0.0-5.0); LYMPHOCYTES # (AUTO) 1.4 K/uL (0.60-3.4); LYMPHOCYTES % (AUTO) 15.1 (10.0-50.0); MEAN CORPUSCULAR HEMOGLOBIN 30.7 pg (27.0-31.0); MEAN CORPUSCULAR HGB CONC 33.8 (31.8-35.4); MEAN CORPUSCULAR VOLUME 90.8 fl (81.0-99.0); MONOCYTES # (AUTO) 0.9 K/uL (0.4-2.0); MONOCYTES % (AUTO) 9.4 (0-10); NEUTROPHILS # (AUTO) 6.6 K/ul (2.0-6.9); NEUTROPHILS % (AUTO) 71.9 % (42.2-75.2); PLATELET COUNT 328 10^3/uL (140-440); RDW COEFFICIENT OF VARIATION 12.6 % (11.6-14.8); RED BLOOD COUNT 4.01 10^6/ul (4.20-5.40); WHITE BLOOD COUNT 9.23 K/ul (4.6-10.2)
[2022-06-09 05:51] LABS: ALANINE AMINOTRANSFERASE 19.1 U/L (0-35); ALBUMIN 3.77 g/dL (3.5-5.0); ALKALINE PHOSPHATASE 81.4 U/L (53-141); ASPARTATE AMINO TRANSFERASE 38.8 U/L (14-36); BILIRUBIN,TOTAL 0.45 mg/dL (0.2-1.3); BLOOD UREA NITROGEN 5.8 mg/dL (7-17); CALCIUM 8.58 mg/dL (8.4-10.2); CARBON DIOXIDE 22.6 mmol/L (22-30.0); CREATININE 0.55 mg/dL (0.60-1.30); GLUCOSE 141.1 mg/dL (74-106); POTASSIUM 3.56 mmol/L (3.5-5.1); SODIUM 133.5 mmol/L (134.5-145); TOTAL PROTEIN 6.81 g/dL (6.3-8.2)
[2022-06-09] MEDS: PRILOSEC PO SCH (05:56)
[2022-06-09] MEDS: NYSTATIN ORAL SUSP PO SCH ×4 (05:56→20:46)
[2022-06-09] MEDS: LOVENOX SUBCUT SCH (09:10)
[2022-06-09] MEDS: ROBITUSSIN DM SYRUP PO SCH ×4 (09:10→20:46)
[2022-06-09] MEDS: ZITHROMAX PO SCH (09:11)
[2022-06-09] MEDS: BETAPACE PO SCH ×2 (09:11→20:47)
[2022-06-09] MEDS: COLESTID PO SCH ×3 (09:11→21:15)
[2022-06-09] MEDS: IMDUR PO SCH ×2 (09:11→20:47)
[2022-06-09] MEDS: COZAAR PO SCH (09:11)
[2022-06-09] MEDS: XANAX PO PRN ×2 (09:11→20:47)
[2022-06-09] MEDS: MULTIVITAMIN TABLET PO SCH (09:11)
[2022-06-09] MEDS: VITAMIN D PO SCH (09:12)
[2022-06-09] MEDS: MICRO-K CAP PO SCH ×2 (09:12→16:02)
[2022-06-09] MEDS: NORVASC PO SCH (09:12)
[2022-06-09] MEDS: NORCO 10-325 PO PRN ×3 (09:12→23:50)
[2022-06-10] MEDS: PRILOSEC PO SCH (05:51)
[2022-06-10] MEDS: NYSTATIN ORAL SUSP PO SCH ×2 (05:51→10:39)
[2022-06-10] MEDS: ROBITUSSIN DM SYRUP PO SCH ×2 (08:44→12:57)
[2022-06-10] MEDS: COZAAR PO SCH (08:46)
[2022-06-10] MEDS: ZITHROMAX PO SCH (08:46)
[2022-06-10] MEDS: XANAX PO PRN (08:46)
[2022-06-10] MEDS: BETAPACE PO SCH (08:46)
[2022-06-10] MEDS: NORCO 10-325 PO PRN (08:47)
[2022-06-10] MEDS: IMDUR PO SCH (08:48)
[2022-06-10] MEDS: MULTIVITAMIN TABLET PO SCH (08:48)
[2022-06-10] MEDS: MICRO-K CAP PO SCH (08:48)
[2022-06-10] MEDS: VITAMIN D PO SCH (08:48)
[2022-06-10] MEDS: NORVASC PO SCH (08:49)
[2022-06-10] MEDS: LOVENOX SUBCUT SCH (08:49)
[2022-06-10] MEDS: COLESTID PO SCH ×2 (10:38→16:06)
[2022-06-10 14:08] VITALS: BP 127/84; TEMP 98
== END 2022-06-10 16:20 | disposition home or self-care (01) | DRG 194 ==
LOC: ED 13:21 → MEDSURG A 19:33
PROVIDERS: ADMIT Family Medicine; ATTEND Family Medicine
DX: Z95.5 Presence of coronary angioplasty implant and graft; M54.9 Dorsalgia, unspecified; Z91.81 History of falling; E78.5 Hyperlipidemia, unspecified; E87.1 Hypo-osmolality and hyponatremia; M13.80 Other specified arthritis, unspecified site; I25.10 Atherosclerotic heart disease of native coronary artery without angina pectoris; E66.9 Obesity, unspecified; Z66 Do not resuscitate; Z20.822 Contact with and (suspected) exposure to COVID-19; Z51.81 Encounter for therapeutic drug level monitoring; R04.2 Hemoptysis; I11.0 Hypertensive heart disease with heart failure; I48.91 Unspecified atrial fibrillation; Z79.01 Long term (current) use of anticoagulants; Z87.891 Personal history of nicotine dependence; R77.8 Other specified abnormalities of plasma proteins; F41.9 Anxiety disorder, unspecified; R26.81 Unsteadiness on feet; R79.1 Abnormal coagulation profile; R53.1 Weakness; J18.9 Pneumonia, unspecified organism; Z79.899 Other long term (current) drug therapy; K58.9 Irritable bowel syndrome, unspecified; G47.33 Obstructive sleep apnea (adult) (pediatric); K21.9 Gastro-esophageal reflux disease without esophagitis; I50.9 Heart failure, unspecified